=== PATIENT | male | born 1960 | race Two or more races ===

== ENCOUNTER → 2017-06-13 | Emergency (ER) | payer OTHER ==
[~2017-06-13] VITALS: Ht 160 cm; Wt 70.3 kg
== END | disposition home or self-care (01) ==
LOC: ER 10:08
DX: J40 Bronchitis, not specified as acute or chronic (principal)

== ENCOUNTER → 2021-01-09 | Emergency (ER) | payer OTHER ==
[~2021-01-09] VITALS: Ht 160 cm; Wt 66.7 kg
[~2021-01-09] MED LIST: PARA PRESION
== END | disposition home or self-care (01) ==
LOC: ER 08:14
DX: E86.0 Dehydration (principal); E87.8 Other disorders of electrolyte and fluid balance, not elsewhere classified

== ENCOUNTER 2021-01-21 09:19 | Emergency (ER) | payer OTHER ==
[~2021-01-21] VITALS: Ht 160 cm; Wt 69.9 kg
[2021-01-21] MEDS ORDERED: PARA PRESION (09:49)
== END 2021-01-21 12:03 | disposition home or self-care (01) ==
LOC: ER 09:19
DX: R30.0 Dysuria (principal)

== ENCOUNTER 2021-05-22 12:17 | Emergency (ER) | payer OTHER ==
[~2021-05-22] VITALS: Ht 160 cm; Wt 74.8 kg
== END 2021-05-22 14:46 | disposition home or self-care (01) ==
LOC: ER 12:17
DX: R42 Dizziness and giddiness (principal)

== ENCOUNTER 2021-07-24 20:53 | Emergency (ER) | payer OTHER ==
[~2021-07-24] VITALS: Ht 160 cm; Wt 70.8 kg
[2021-07-24] MEDS ORDERED: COZAAR25 MG (21:07)
== END 2021-07-24 22:25 | disposition home or self-care (01) ==
LOC: ER 20:53
DX: M54.50 Low back pain, unspecified (principal); I10 Essential (primary) hypertension

== ENCOUNTER 2022-11-07 09:36 | Emergency (ER) | payer OTHER ==
[~2022-11-07] VITALS: Ht 160 cm; Wt 70.8 kg
[~2022-11-07 09:36] MED LIST changes: +COZAAR25 MG
[2022-11-07] MEDS ORDERED: CYCLOBENZAPRINE10 MG PO (10:25)
[2022-11-07] MEDS ORDERED: RELAFEN DS1000 MG PO (10:25)
== END 2022-11-07 10:48 | disposition home or self-care (01) ==
LOC: ER 09:36
DX: M54.32 Sciatica, left side (principal); I10 Essential (primary) hypertension

== ENCOUNTER 2022-11-09 13:56 | Emergency (ER) | payer OTHER ==
[~2022-11-09] VITALS: Ht 160 cm; Wt 70.8 kg
[~2022-11-09 13:56] MED LIST changes: +CYCLOBENZAPRINE10 MG PO; +RELAFEN DS1000 MG PO
== END 2022-11-09 14:47 | disposition home or self-care (01) ==
LOC: ER 13:56
DX: M51.26 Other intervertebral disc displacement, lumbar region (principal)

== ENCOUNTER 2022-11-11 12:58 | Emergency (ER) | payer OTHER ==
[~2022-11-11] VITALS: Ht 160 cm; Wt 70.8 kg
== END 2022-11-11 15:41 | disposition home or self-care (01) ==
LOC: ER 12:58
DX: M79.605 Pain in left leg (principal)

== ENCOUNTER 2022-11-30 21:58 | Emergency (ER) | payer OTHER ==
[~2022-11-30] VITALS: Ht 160 cm; Wt 70.8 kg
[2022-11-30] MEDS ORDERED: COZAAR100 MG PO (22:37)
== END 2022-12-01 02:39 | disposition home or self-care (01) ==
LOC: ER 21:58
DX: I10 Essential (primary) hypertension (principal)

== ENCOUNTER 2024-02-18 07:19 | Outpatient (CLI) | payer OTHER ==
[~2024-02-18 07:19] MED LIST changes: +COZAAR100 MG PO
== END 2024-02-18 07:25 | disposition home or self-care (01) ==
LOC: SONOGRAMA 07:19
DX: K76.0 Fatty (change of) liver, not elsewhere classified (principal)

== ENCOUNTER 2024-07-09 10:02 | Emergency (ER) | payer OTHER ==
[~2024-07-09] VITALS: Ht 160 cm; Wt 67.6 kg
[2024-07-09] MEDS ORDERED: GLUMETZA500 MG PO (10:12)
[2024-07-09] MEDS ORDERED: METHYLPREDNISOLONE SOD SUCC 125 MG VIAL IM STA (10:42)
[2024-07-09] MEDS ORDERED: CEFTRIAXONE SODIUM 1,000 MG VIAL IM STA (10:42)
[2024-07-09] MEDS ORDERED: CEFTRIAXONE SODIUM 1,000 MG VIAL ONE (10:50)
[2024-07-09] MEDS ORDERED: METHYLPREDNISOLONE SOD SUCC 125 MG VIAL ONE (10:50)
== END 2024-07-09 11:00 | disposition home or self-care (01) ==
LOC: ER 10:04
DX: R05.8 Other specified cough (principal)
CPT/HCPCS: 96372; 99282; J0696; J3490

== ENCOUNTER 2024-07-26 10:00 | Outpatient (CLI) | payer OTHER ==
[~2024-07-26 10:00] MED LIST changes: +GLUMETZA500 MG PO
== END 2024-07-26 10:02 | disposition home or self-care (01) ==
LOC: NUCLEAR 10:00
DX: I73.9 Peripheral vascular disease, unspecified (principal); I87.2 Venous insufficiency (chronic) (peripheral)

== ENCOUNTER 2024-07-27 09:56 | Outpatient (CLI) | payer OTHER | END 2024-07-27 09:58 | disposition home or self-care (01) | LOC: NUCLEAR 09:56 | DX: I73.9 Peripheral vascular disease, unspecified (principal); I87.2 Venous insufficiency (chronic) (peripheral) ==

== ENCOUNTER 2025-03-17 07:35 | Outpatient (CLI) | payer OTHER | END 2025-03-17 07:38 | disposition home or self-care (01) | LOC: SONOGRAMA 07:35 | DX: K76.0 Fatty (change of) liver, not elsewhere classified (principal) ==